=== PATIENT | male | born 1985 | race Caucasian/White ===

== ENCOUNTER 2022-01-01 21:33 | Emergency (ER) | payer OTHER ==
[2022-01-01 22:56] LABS: HEMOGLOBIN 17.3 gm/dl (14.0-17.5); RED BLOOD COUNT 5.5 M/UL (4.20-5.50)
[2022-01-01 23:22] LABS: BUN/CREATININE RATIO 20 (0-10)
[2022-01-02] MEDS ORDERED: BENTYL 20MG TAB20 MG PO (04:35)
[2022-01-02] MEDS ORDERED: ZOFRAN ODT 4 MG4 MG PO (04:35)
== END 2022-01-02 04:37 | disposition home or self-care (01) ==
LOC: ER1 21:33
PROVIDERS: Physician Assistant
DX: R10.84 Generalized abdominal pain (principal); R07.9 Chest pain, unspecified; F17.210 Nicotine dependence, cigarettes, uncomplicated; Z88.0 Allergy status to penicillin
CPT/HCPCS: 71045; 80053; 81001; 82550; 82553; 83690; 84484; 85025; 93005; 99284